=== PATIENT | male | born 1995 | race Hispanic/Latino ===

== ENCOUNTER 2019-11-02 10:10 | Emergency (ER) | payer OTHER ==
--- NOTE | 2019-11-02 10:50 | RAD REPORT ---
EXAM DESCRIPTION: RAD - Foot Left 3 View - 11/02/2019 10:43 am CLINICAL HISTORY: Left Foot pain FINDINGS: No fracture or dislocation is seen.
--- NOTE | 2019-11-02 11:01 | EDPHYS ---
Physician Documentation [facility] Name: Kin Waller Age: 24 yrs Sex: Male : 1995 Arrival Date: 11/02/2019 Time: 10:12 Bed 18 Private MD: Dilia Ramos ED Physician Cuong Barnes HPI: 11/01 11:14 This 24 yrs old Male presents to ER via Wheelchair with complaints of Foot kb Injury. 11:14 The patient presents with an injury, pain, swelling, tenderness. The complaints affect kb the lateral side of left foot. Context: The problem was sustained at home, outdoors, resulted from a mis-step, the patient is not able to bear weight, the patient is not able to ambulate. Onset: The symptoms/episode began/occurred yesterday. Modifying factors: The symptoms are alleviated by nothing. the symptoms are aggravated by movement, weight bearing. Associated signs and symptoms: Pertinent positives: swelling, Pertinent negatives calf tenderness, fever, nausea, numbness, rash, tingling, vomiting, warmth, weakness. Treatment prior to arrival includes: hailee wrap. Severity of symptoms: At their worst the symptoms were mild, moderate, in the emergency department the symptoms are unchanged. The patient has not experienced similar symptoms in the past. The patient has not recently seen a physician. Pt reports he was running around the yard yesterday and stepped on a brick, twisting foot. Historical: - Allergies: 10:22 No Known Allergies; iw - Home Meds: 10:22 None [Active]; iw - PMHx: 10:22 None; iw - PSHx: 10:22 None; iw - Immunization history:: Adult Immunizations not up to date. - Social history:: Smoking status: Patient reports the use of cigarette tobacco products, smokes one-half pack cigarettes per day. ROS: 11:09 Constitutional: Negative for fever, chills, and weight loss, Cardiovascular: Negative kb for chest pain, palpitations, and edema, Respiratory: Negative for shortness of breath, cough, wheezing, and pleuritic chest pain, Abdomen/GI: Negative for abdominal pain, nausea, vomiting, diarrhea, and constipation, Back: Negative for injury and pain, Skin: Negative for injury, rash, and discoloration, Neuro: Negative for headache, weakness, numbness, tingling, and seizure. 11:09 MS/extremity: Positive for pain, swelling, tenderness, of the lateral side of left foot. Exam: 11:13 Constitutional: This is a well developed, well nourished patient who is awake, alert, kb and in no acute distress. Head/Face: Normocephalic, atraumatic. Neck: Trachea midline, no thyromegaly or masses palpated, and no cervical lymphadenopathy. Supple, full range of motion without nuchal rigidity, or vertebral point tenderness. No Meningismus. Chest/axilla: Normal chest wall appearance and motion. Nontender with no deformity. No lesions are appreciated. Cardiovascular: Regular rate and rhythm with a normal S1 and S2. No gallops, murmurs, or rubs. Normal PMI, no JVD. No pulse deficits. Respiratory: Lungs have equal breath sounds bilaterally, clear to auscultation and percussion. No rales, rhonchi or wheezes noted. No increased work of breathing, no retractions or nasal flaring. Abdomen/GI: Soft, non-tender, with normal bowel sounds. No distension or tympany. No guarding or rebound. No evidence of tenderness throughout. Skin: Warm, dry with normal turgor. Normal color with no rashes, no lesions, and no evidence of cellulitis. Neuro: Awake and alert, GCS 15, oriented to person, place, time, and situation. Cranial nerves II-XII grossly intact. Motor strength 5/5 in all extremities. Sensory grossly intact. Cerebellar exam normal. Normal gait. 11:13 Musculoskeletal/extremity: Extremities: grossly normal except: noted in the lateral side of left foot: pain, ROM: intact in all extremities, Circulation is intact in all extremities. Sensation intact. Weight bearing: can bear weight with assistance only. Vital Signs: 10:18 Temp 98.3(TE); aa5 10:23 BP 127 / 81; Pulse 70; Resp 16; Temp 98.4; Pulse Ox 99% on R/A; Weight 58.97 kg; Height iw 5 ft. 3 in. (160.02 cm); Pain 7/10; 10:23 Body Mass Index 23.03 (58.97 kg, 160.02 cm) iw MDM: 10:15 Patient medically screened. kb 11:08 Data reviewed: vital signs, nurses notes. Data interpreted: Pulse oximetry: on room air kb is 99 %. Interpretation: normal. Counseling: I had a detailed discussion with the patient and/or guardian regarding: the historical points, exam findings, and any diagnostic results supporting the discharge/admit diagnosis, radiology results, the need for outpatient follow up, a family practitioner, to return to the emergency department if symptoms worsen or persist or if there are any questions or concerns that arise at home. 11/01 10:18 Order name: Foot Left 3 View XRAY; Complete Time: 10:50 kb 11/01 11:01 Order name: Crutches; Complete Time: 11:30 kb Administered Medications: No medications were administered Disposition: 12:47 Co-signature as Attending Physician, Cuong Barnes MD I agree with the assessment and betsey plan of care. Disposition: 11/02/19 10:59 Discharged to Home. Impression: Unspecified sprain of left foot. - Condition is Stable. - Discharge Instructions: Foot Sprain. - Prescriptions for Diclofenac Sodium 75 mg Oral Tablet, Delayed Release (E.C.) - take 1 tablet by ORAL route 2 times per day As needed; 30 tablet. - Work release form, Medication Reconciliation Form, Thank You Letter, Antibiotic Education, Prescription Opioid Use form. - Follow up: Emergency Department; When: As needed; Reason: Worsening of condition. Follow up: Private Physician; When: 2 - 3 days; Reason: Recheck today's complaints, Continuance of care, Re-evaluation by your physician. Signatures: Dispatcher [employer] EDDE Nena Rivera, STEFAN-C STEFAN-Cuong Lozada MD MD cha Williams, Irene, RN RN iw Leal, Jahala, RN RN jl7 Corrections: (The following items were deleted from the chart) 11:39 10:59 11/02/2019 10:59 Discharged to Home. Impression: Unspecified sprain of left foot. jl7 Condition is Stable. Forms are Medication Reconciliation Form, Thank You Letter, Antibiotic Education, Prescription Opioid Use. Follow up: Emergency Department; When: As needed; Reason: Worsening of condition. Follow up: Private Physician; When: 2 - 3 days; Reason: Recheck today's complaints, Continuance of care, Re-evaluation by your physician. kb
--- NOTE | 2019-11-02 11:01 | ER ---
Nurse's Notes [facility] Name: Kin Waller Age: 24 yrs Sex: Male : 1995 Arrival Date: 11/02/2019 Time: 10:12 Bed 18 Private MD: Dilia Ramos Diagnosis: Unspecified sprain of left foot Presentation: 11/01 10:17 Chief complaint: Patient states: rolled left foot yesterday. Onset of symptoms was iw November 01, 2019. 10:18 Coronavirus screen: Proceed with normal triage. Ebola Screen: Patient negative for aa5 fever greater than or equal to 101.5 degrees Fahrenheit, and additional compatible Ebola Virus Disease symptoms. Initial Sepsis Screen: Does the patient meet any 2 criteria? No. Patient's initial sepsis screen is negative. Does the patient have a suspected source of infection? No. Patient's initial sepsis screen is negative. Risk Assessment: Do you want to hurt yourself or someone else? Patient reports no desire to harm self or others. 10:18 Acuity: MARBIN 4 aa5 10:18 Method Of Arrival: Wheelchair aa5 Historical: - Allergies: 10:22 No Known Allergies; iw - Home Meds: 10:22 None [Active]; iw - PMHx: 10:22 None; iw - PSHx: 10:22 None; iw - Immunization history:: Adult Immunizations not up to date. - Social history:: Smoking status: Patient reports the use of cigarette tobacco products, smokes one-half pack cigarettes per day. Screenin:20 Abuse screen: Denies threats or abuse. Nutritional screening: No deficits noted. aa5 Tuberculosis screening: No symptoms or risk factors identified. Fall Risk None identified. Assessment: 10:15 General: Appears comfortable, Behavior is calm, cooperative. Pain: Complains of pain in aa5 left foot Pain currently is 7 out of 10 on a pain scale. Neuro: Level of Consciousness is awake, alert, obeys commands, Oriented to person, place, time, situation. Cardiovascular: Capillary refill < 3 seconds is brisk in bilateral toes. Respiratory: Airway is patent Respiratory effort is even, unlabored, Respiratory pattern is regular, symmetrical. GI: No signs and/or symptoms were reported involving the gastrointestinal system. : No signs and/or symptoms were reported regarding the genitourinary system. EENT: No signs and/or symptoms were reported regarding the EENT system. Derm: Skin is pink, warm \T\ dry. Musculoskeletal: Range of motion: intact in all extremities. 11:38 Reassessment: Patient is alert, oriented x 3, equal unlabored respirations, skin aa5 warm/dry/pink. Vital Signs: 10:18 Temp 98.3(TE); aa5 10:23 BP 127 / 81; Pulse 70; Resp 16; Temp 98.4; Pulse Ox 99% on R/A; Weight 58.97 kg; Height iw 5 ft. 3 in. (160.02 cm); Pain 710; 10:23 Body Mass Index 23.03 (58.97 kg, 160.02 cm) ED Course: 10:12 Patient arrived in ED. ag5 10:13 Dilia Ramos MD is Private Physician. ag5 10:13 Nena Rivera [facility]-C [facility]. kb 10:13 Cuong Barnes MD is Attending Physician. kb 10:15 Jessica Burden, RN is Primary Nurse. aa5 10:18 Arm band placed on. aa5 10:19 Triage completed. aa5 10:44 Foot Left 3 View XRAY In Process Unspecified. EDMS 11:29 Crutch training done. Duane wrap to left ankle. mh5 11:30 Patient has correct armband on for positive identification. Bed in low position. Call 5 light in reach. Side rails up X 1. Pulse ox on. NIBP on. 11:38 No provider procedures requiring assistance completed. Patient did not have IV access jl7 during this emergency room visit. Administered Medications: No medications were administered Outcome: 10:59 Discharge ordered by . kb 11:38 Discharged to home ambulatory, with crutches. jl7 11:38 Condition: stable 11:38 Discharge instructions given to patient, Instructed on discharge instructions, follow up and referral plans. medication usage, crutch walking, Demonstrated understanding of instructions, follow-up care, medications, crutch walking, Prescriptions given X 1. 11:39 Patient left the ED. jl7 Signatures: Dispatcher [employer] EDLA Nena Rivera FNP-C FNP-Hellen Turner RN RN iw Calderon, Audri, RN RN aa5 Rebecca Whelan 5 Henry Schultz RN RN jl7 Madi Lam ag5
[2019-11-02 11:55] VITALS: BP 127/81; TEMP 98.4; O2SAT 99
== END 2019-11-02 11:39 | disposition home or self-care (01) ==
LOC: ER 10:10
DX: S93.602A Unspecified sprain of left foot, initial encounter (principal); X50.1XXA Overexertion from prolonged static or awkward postures, initial encounter; Y93.02 Activity, running; Y92.89 Other specified places as the place of occurrence of the external cause; F17.210 Nicotine dependence, cigarettes, uncomplicated
CPT/HCPCS: 99284